=== PATIENT | male | born 1975 | race Caucasian/White ===

== ENCOUNTER 2022-07-16 17:41 | Emergency (ER) | payer OTHER ==
[~2022-07-16] VITALS: Ht 162.6 cm; Wt 81.6 kg
[2022-07-16 18:36] LABS: HEMOGLOBIN 9.6 gm/dl (14.0-17.5); RED BLOOD COUNT 3.36 M/UL (4.20-5.50); WHITE BLOOD COUNT 4.8 K/UL (4.5-11.0)
[2022-07-16 18:38] LABS: BUN/CREATININE RATIO 8 (0-10)
[2022-07-17] MEDS ORDERED: ADVIL200 MG PO (12:24)
[2022-07-17] MEDS ORDERED: LISINOPRIL20 MG PO (12:24)
[2022-07-17] MEDS ORDERED: PROAIR HFA8.5 GM PO (12:24)
== END 2022-07-17 19:05 | disposition home or self-care (01) ==
LOC: ER1 17:41
PROVIDERS: Emergency Medicine; Family Medicine
DX: S06.6X9A Traumatic subarachnoid hemorrhage with loss of consciousness of unspecified duration, initial encounter (principal); S01.01XA Laceration without foreign body of scalp, initial encounter; R74.02 Elevation of levels of lactic acid dehydrogenase [LDH]; R07.89 Other chest pain; F10.239 Alcohol dependence with withdrawal, unspecified; F10.229 Alcohol dependence with intoxication, unspecified; Z51.81 Encounter for therapeutic drug level monitoring; F17.200 Nicotine dependence, unspecified, uncomplicated
CPT/HCPCS: 12001; 36600; 70450; 80053; 80307; 81001; 82803; 83605; 85025; 85610; 85730; 90471; 90715; 93005; 96374; 99284; G0480; J2405